=== PATIENT | male | born 1955 | race African-American/Black ===

== ENCOUNTER 2017-01-23 13:35 | Emergency (ER) | payer BC ==
[~2017-01-23] VITALS: Ht 188 cm; Wt 114.0 kg
[2017-01-23 13:41] VITALS: BP 107/70
== END 2017-01-23 17:26 | disposition left against medical advice (07) ==
LOC: ER 13:44
DX: M79.609 Pain in unspecified limb (principal); Z53.21 Procedure and treatment not carried out due to patient leaving prior to being seen by health care provider